=== PATIENT | female | born 1950 | race Two or more races ===

== ENCOUNTER 2017-08-24 08:40 | Emergency (ER) | payer OTHER ==
[~2017-08-24] VITALS: Ht 162.6 cm; Wt 91.6 kg
[2017-08-24] MEDS ORDERED: VASOTEC20 MG (08:57)
[2017-08-24] MEDS ORDERED: NAPROXEN500 MG (08:57)
[2017-08-24] MEDS ORDERED: ZOCOR40 MG (08:57)
[2017-08-24] MEDS ORDERED: ASPIR 8181 MG (08:58)
[2017-08-24] MEDS ORDERED: ISOSORBIDE DINI20 MG (08:58)
[2017-08-24] MEDS ORDERED: PROVENTIL HFA6.7 GM (08:59)
== END 2017-08-24 09:41 | disposition home or self-care (01) ==
LOC: ER 08:40
DX: N76.2 Acute vulvitis (principal)

== ENCOUNTER 2018-11-20 22:37 | Inpatient (IN) | payer OTHER ==
[~2018-11-20] VITALS: Ht 162.6 cm; Wt 92.5 kg
[~2018-11-20 22:37] MED LIST: ASPIR 8181 MG; ISOSORBIDE DINI20 MG; NAPROXEN500 MG; PROVENTIL HFA6.7 GM; VASOTEC20 MG; ZOCOR40 MG
[2018-11-20] MEDS ORDERED: FORTAMET1000 MG (23:07)
--- NOTE | 2018-11-20 23:10 | NUR ---
PACIENTE ALERTA Y ORIENTADA POR RABIA ESFERAS QUIEN REFIERE ASMA DESDE HOY EN LA MANANA, DOLOR EN EL CUERPO Y TOS.
--- NOTE | 2018-11-20 23:54 | NUR ---
PT ALERTA Y ORIENTADA X3 ESFERAS SE LE ORIENTA SOBRE TX Y REFIERE ENTENDER. SE RAY MUESTRAS DE KJ Y VENOPUNCION CON TECNICAS ASEPTICAS. SE ADMINISTRAN MEDICAMENTOS ORDENADOS. PT TOLERA TX.
[2018-11-24] MEDS ORDERED: OSEL75CA PO (13:28)
[2018-11-24] MEDS ORDERED: PREDNISONE10 MG PO (13:28)
[2018-11-24] MEDS ORDERED: TESSALON PERLE100 M1 PO (13:28)
[2018-11-24] MEDS ORDERED: LEVAQUIN500 MG PO (13:28)
== END 2018-11-24 14:20 | disposition home or self-care (01) | DRG 203 ==
LOC: ER 22:37 → MEDJ 11-21 08:48
PROVIDERS: ADMIT Student in an Organized Health Care Education/Training Program
PROC: 4A033R1 Measurement of Arterial Saturation, Peripheral, Percutaneous Approach (ICD-10-PCS; principal; 2018-11-21)
PROC: 8E0ZXY6 Isolation (ICD-10-PCS; 2018-11-21)
PROC: 3E0F7GC Introduction of Other Therapeutic Substance into Respiratory Tract, Via Natural or Artificial Opening (ICD-10-PCS; 2018-11-21)
DX: J45.31 Mild persistent asthma with (acute) exacerbation (principal); J09.X2 Influenza due to identified novel influenza A virus with other respiratory manifestations; I10 Essential (primary) hypertension; E78.49 Other hyperlipidemia

== ENCOUNTER 2019-01-19 16:40 | Inpatient (IN) | payer OTHER ==
[~2019-01-19] VITALS: Ht 162.6 cm; Wt 92.5 kg
[~2019-01-19 16:40] MED LIST changes: +FORTAMET1000 MG; +LEVAQUIN500 MG PO; +OSEL75CA PO; +PREDNISONE10 MG PO; +TESSALON PERLE100 M1 PO
--- NOTE | 2019-01-19 17:12 | NUR ---
PTE REFIERE DOLOR DE ESPALDA DESDE Y DEL VIENTRE DESDE ESTA MANANA SE RAY S/V YS EUBIAC EN AREA DE ESPERA
--- NOTE | 2019-01-20 07:27 | NUR ---
SE RECIBE DE TURNO ANTERIOR FEMENINA EN CLAUDIA K4,FEMENINA DE 68 ALERTA,ORIEN TADA EN RABIA ESFERAS,DESCANSANDO EN CAMA NIVEL MAS BAJO,BARANDAS ELEVADAS,FRENOS,MCNEIL DE IDENTIFICACION COLOCADOS POR SEGURIDAD. SE OBSERVA CON BUEN PATRON RESPIRATORIO,PIEL TIBIA AL TACTO. AREA DE VENOPUNCION LIMPIA,SECA,TIAN DE S/S EDEMA Y/O ERITEMA. PENDIENTE CONSULTA CON DR. LOPEZ POR COLELITHIASIS.
[2019-01-27] MEDS ORDERED: PERCOCET 5-3251 EACH PO (18:15)
[2019-01-27] MEDS ORDERED: ASA-EC81 MG PO (18:15)
[2019-01-27] MEDS ORDERED: PANTOPRAZOLE SO40 MG PO (18:15)
[2019-01-27] MEDS ORDERED: ENALAPRIL MALEA20 MG PO (18:15)
== END 2019-01-27 18:53 | disposition home or self-care (01) | DRG 418 ==
LOC: ER 16:40 → SEC-K 01-20 12:07 → MEDJ 01-20 12:07
PROVIDERS: Surgery; ADMIT Internal Medicine
PROC: BF37ZZZ Magnetic Resonance Imaging (MRI) of Pancreas (ICD-10-PCS; 2019-01-20)
PROC: BW40ZZZ Ultrasonography of Abdomen (ICD-10-PCS; 2019-01-20)
PROC: 3E0F7GC Introduction of Other Therapeutic Substance into Respiratory Tract, Via Natural or Artificial Opening (ICD-10-PCS; 2019-01-20)
PROC: 0FT44ZZ Resection of Gallbladder, Percutaneous Endoscopic Approach (ICD-10-PCS; principal; 2019-01-24 12:00)
DX: K80.10 Calculus of gallbladder with chronic cholecystitis without obstruction (principal); J45.31 Mild persistent asthma with (acute) exacerbation; E11.65 Type 2 diabetes mellitus with hyperglycemia; I25.10 Atherosclerotic heart disease of native coronary artery without angina pectoris; I10 Essential (primary) hypertension; I25.2 Old myocardial infarction; E66.8 Other obesity; K21.9 Gastro-esophageal reflux disease without esophagitis; R74.8 Abnormal levels of other serum enzymes; Z79.4 Long term (current) use of insulin; Z91.013 Allergy to seafood

== ENCOUNTER → 2020-04-26 11:14 | Outpatient (CLI) | payer OTHER ==
[~2020-04-26 11:14] MED LIST changes: +ASA-EC81 MG PO; +ENALAPRIL MALEA20 MG PO; +PANTOPRAZOLE SO40 MG PO; +PERCOCET 5-3251 EACH PO
== END | disposition home or self-care (01) ==
LOC: LAB 11:14
PROVIDERS: ATTEND Physical Medicine & Rehabilitation
DX: Z20.828 Contact with and (suspected) exposure to other viral communicable diseases (principal); Z11.59 Encounter for screening for other viral diseases

== ENCOUNTER 2020-05-15 09:46 | Outpatient (CLI) | payer OTHER | END 2020-05-15 09:56 | disposition home or self-care (01) | LOC: SONOGRAMA 09:46 | PROVIDERS: ATTEND Physical Medicine & Rehabilitation | DX: M25.512 Pain in left shoulder (principal); M25.511 Pain in right shoulder ==

== ENCOUNTER 2020-11-01 11:29 | Outpatient (CLI) | payer OTHER | END 2020-11-01 11:35 | disposition home or self-care (01) | LOC: MRI 11:29 | PROVIDERS: ATTEND Anesthesiology | DX: M54.2 Cervicalgia (principal) | CPT/HCPCS: 72141 ==

== ENCOUNTER 2020-11-10 08:17 | Emergency (ER) | payer OTHER ==
[~2020-11-10] VITALS: Ht 162.6 cm; Wt 92.5 kg
== END 2020-11-10 14:24 | disposition home or self-care (01) ==
LOC: ER 08:17
DX: T78.3XXA Angioneurotic edema, initial encounter (principal); J45.998 Other asthma

== ENCOUNTER 2020-12-09 08:18 | Outpatient (CLI) | payer OTHER | END 2020-12-09 08:26 | disposition home or self-care (01) | LOC: RAD 08:18 | PROVIDERS: ATTEND Student in an Organized Health Care Education/Training Program | DX: M54.2 Cervicalgia (principal); M54.5 Low back pain ==

== ENCOUNTER 2021-11-16 09:31 | Emergency (ER) | payer OTHER ==
[~2021-11-16] VITALS: Ht 162.6 cm; Wt 92.5 kg
[2021-11-16] MEDS ORDERED: TIZANIDINE HCL2 M1 PO (09:54)
== END 2021-11-16 10:14 | disposition home or self-care (01) ==
LOC: ER 09:31
DX: L02.212 Cutaneous abscess of back [any part, except buttock and flank] (principal)

== ENCOUNTER 2022-11-18 06:17 | Day surgery (SDC) | payer OTHER ==
[~2022-11-18 06:17] MED LIST changes: +TIZANIDINE HCL2 M1 PO
[2022-11-18] MEDS ORDERED: ENDOCET 10-3251 EACH PO (09:20)
== END 2022-11-18 12:15 | disposition home or self-care (01) ==
LOC: CIR.AMB 06:17
PROVIDERS: ATTEND Surgery
DX: D35.1 Benign neoplasm of parathyroid gland (principal); E05.11 Thyrotoxicosis with toxic single thyroid nodule with thyrotoxic crisis or storm; E21.0 Primary hyperparathyroidism; Z91.013 Allergy to seafood; I10 Essential (primary) hypertension; E11.9 Type 2 diabetes mellitus without complications; Z79.84 Long term (current) use of oral hypoglycemic drugs; Z20.822 Contact with and (suspected) exposure to COVID-19